=== PATIENT | male | born 1990 | race Caucasian/White ===

== ENCOUNTER 2021-10-26 11:47 | Emergency (ER) | payer BC, SELFPAY ==
[2021-10-26] VITALS (15 sets, daily range): BP systolic 97–131; BP diastolic 56–81; PULSE 48–77; RESP 13–28; TEMP 35.6; O2SAT 96–100
--- NOTE | ~2021-10-26 | CT_ITS ---
EXAMINATION: CT abdomen pelvis wo con DATE: 10/26/2021 13:30 INDICATION: R flank pain TECHNIQUE: Computed tomography (CT) of the abdomen and pelvis was performed without intravenous contr ast. Automated exposure control and iterative reconstruction technique were employed. The dose-length product was 411.12 mGy-cm. COMPARISON: None FINDINGS: Lower thorax: Unremarkable Liver: Enlarged. Biliary/Gallbladder: Gallbladder is normal. No bile duct dilation. Pancreas: No mass or duct dilation. Spleen: Normal. Adrenals:No mass. Kidneys: Multiple bilateral punctate renal calcifications. Minimal right hydronephrosis. GI tract: No small or large bowel dilation. Appendix not visualized. 3.1 cm duodenal diverticulum. Mesentery/Peritoneum: No ascites, mass, or free air. Retroperitoneum: No mass. Pelvis: Prominent seminal vesicles. The bladder is incompletely distended, with wall thickening. 1-2 mm right UVJ stone. Soft Tissues: Soft tissues and body wall unremarkable. Bones: No acute osseous finding. IMPRESSION: 1-2 mm right UVJ stone causing mild right obstructive uropathy. Prominence seminal vesicles, correlat e with symptoms of infection. Reviewed, dictated and finalized at location K. IMPRESSION: 1-2 mm right UVJ stone causing mild right obstructive uropathy. Prominence semi nal vesicles, correlate with symptoms of infection.
--- NOTE | ~2021-10-26 | XR_ITS ---
EXAM: XR abdomen/kub 1V DATE: 10/26/2021 13:42 HISTORY: kidney stone . COMPARISON: CT abdomen and pelvis, same date. FINDINGS: Clear lung bases. Normal bowel gas pattern. No organomegaly. No abnormal abdominal calcifi cation. Regional bones and soft tissues normal for age. IMPRESSION: Normal abdominal radiograph findings. Known right UVJ stone is not radiographically visib le. Reviewed, dictated and finalized at location K. IMPRESSION: Normal abdominal radiograph findings. Known right UVJ stone is not radiographically visible.
--- NOTE | 2021-10-26 12:12 | ED.ABDPAIN ---
HPI - Abdominal Pain General Chief Complaint: Abdominal Pain Stated Complaint: ABD/BACK PAIN, N/V Time Seen by Provider: 10/26/21 12:07 Source: RN notes reviewed History of Present Illness HPI narrative: Patient presents emergency room from home for right-sided flank and abdominal pain. Patient states pain began suddenly approximately 10 AM this morning. The pain is located in right flank and radiates around to the right side of the abdomen described as sharp and stabbing. States has been associate with nausea and vomiting. States he not taking thing for the symptoms at home he denies any fever chills chest pain shortness of breath or any other symptoms. States he is an insulin-dependent diabetic and has been taking his insulin as prescribed states his blood sugars have been running within normal range Related Data Home Medications Medication Instructions Recorded Confirmed insulin lispro 100 unit/mL ml 10/26/21 subcutaneous solution (Humalog U-100 Insulin) Allergies Allergy/AdvReac Type Severity Reaction Status Date / Time No Known Allergies Allergy Verified 10/26/21 12:16 Review of Systems Review of Systems: Gen.: Denies fevers or chills ENT: Denies congestion Respiratory: Denies shortness of breath or cough CV: Denies chest pain or palpitations GI: HPI denies burning, urgency, frequency or hematuria Musculoskeletal: Denies back pain or muscle pain Neuro: Denies numbness, tingling, weakness or focal weakness Skin: Denies rash Except as documented, all other systems reviewed and negative [facility] Past Medical History Medical History (Updated 10/26/21 @ 14:59 by Remy Blackburn DO) Insulin dependent diabetes mellitus Family History Family History (Updated 04/11/18 @ 09:11 by DOCTOR UNKNOWN) Other Diabetes mellitus Malignant neoplasm of prostate Social History Social History Smoking status: Never smoker Alcohol intake: current Exam Narrative: APPEARANCE: No acute distress, nontoxic, resting in bed EYES: EOMI HEENT: Normocephalic, atraumatic, OMM RESPIRATORY: No respiratory distress Clear to auscultation bilaterally with no rhonchi wheezing or rales. CARDIOVASCULAR: Regular rate and rhythm without murmurs rubs or gallops. ABDOMINAL: Soft, nondistended tender palpation right lower quadrant no tenderness right upper quadrant, left upper quadrant left lower quadrant no rebound or guarding, right flank tenderness MUSCULOSKELETAl: Moves all extremities. No clubbing, cyanosis or edema. NEURO: Awake and alert. Following commands, speech normal, no focal deficits SKIN:: Warm, dry. No rashes lesions or abrasions PSYCHIATRIC: Normal affect/mood, Course Course Emergency Course: Patient states he is feeling much better at this time Discussed with patient results of workup and diagnosis. Discussed need for follow-up with primary care, proper use of medication, and reasons to return to the emergency department. Patient understands and agrees to current treatment plan Vital Signs Vital signs: Vital Signs Temperature 96.1 F L 10/26/21 12:02 Pulse Rate 48 L 10/26/21 12:02 Respiratory Rate 20 10/26/21 12:02 Blood Pressure 97/56 L 10/26/21 12:02 Pulse Oximetry 100 10/26/21 12:02 Temperature 96.1 F L 10/26/21 12:02 Pulse Rate 71 10/26/21 14:15 Respiratory Rate 18 10/26/21 14:15 Blood Pressure 113/68 10/26/21 14:01 Pulse Oximetry 97 10/26/21 14:15 Oxygen Delivery Room Air 10/26/21 12:13 MDM - Abdominal Pain Lab Data Result diagrams: 10/26/21 12:16 10/26/21 12:16 Labs: Lab Results 10/26/21 10/26/21 10/26/21 Range/Units 12:12 12:16 12:16 WBC 5.5 (4.5-10.0) K/mm3 RBC 6.05 (4.6-6.20) M/mm3 Hgb 17.3 (14.0-18.0) g/dL Hct 50.0 (42.0-52.0) % MCV 82.6 (80-100) fl MCH 28.6 (26-34) pg MCHC 34.6 (32-36) g/dl RDW 12.3 (11.5-
[2021-10-26 12:21] LABS: Basophils Percent Auto 0.7 % (0.2-1.2); Eosinophils Absolute Auto 0.1 K/mm3 (0-0.3); Eosinophils Percent Auto 1.1 % (0-4.4); Hemoglobin 17.3 g/dL (14.0-18.0); Immature Granulocyte Absolute 0.02 K/mm3 (0.00-0.031); Immature Granulocyte Percent A 0.4 % (0-0.5); Lymphocytes Absolute Auto 1.62 K/mm3 (0.9-3.2); Lymphocytes Percent Auto 29.4 % (18.3-44.2); Mean Corpuscular HGB Conc 34.6 g/dl (32-36); Mean Corpuscular Hemoglobin 28.6 pg (26-34); Mean Corpuscular Volume 82.6 fl (80-100); Mean Platelet Volume 9.1 fl (7.4-10.4); Monocytes Absolute Auto 0.5 K/mm3 (0.1-0.6); Monocytes Percent Auto 9.3 % (2.6-8.5); Neutrophils Absolute Auto 3.3 K/mm3 (1.3-6.7); Neutrophils Percent Auto 59.1 % (45.5-73.1); Platelet Count Result 235 k/mm3 (150-375); Red Blood Count 6.05 M/mm3 (4.6-6.20); Red Cell Distribution Width 12.3 % (11.5-14.5); White Blood Count 5.5 K/mm3 (4.5-10.0)
[2021-10-26] MEDS: ONDANSETRON INJ 4 MG/2 ML VIAL IV PUSH (12:21)
[2021-10-26] MEDS: SODIUM CHLORIDE 0.9% IV 1,000 ML 999 ML IV CONT (12:21)
[2021-10-26 12:32] LABS: Alanine Aminotransferase 24 U/L (6-50); Albumin Level 4.9 g/dL (3.5-5.1); Alkaline Phosphatase 95 U/L (38-126); Anion Gap 12 mmol/L (8-16); Aspartate Amino Transferase 23 U/L (17-59); Bilirubin,Total 0.9 mg/dL (0.2-1.3); Blood Urea Nitrogen 16 mg/dL (9-20); Calcium 9.1 mg/dL (8.4-10.2); Carbon Dioxide 23 mmol/L (22-30); Chloride 104 mmol/L (98-107); Estimated CRCL calculation 110 ml/min; Estimated Glomerular Filt Rate > 60; Glucose 232 mg/dL (65-110); Potassium 4.1 mmol/L (3.4-5.0); Sodium 139 mmol/L (137-145)
--- NOTE | 2021-10-26 13:24 | PC.NURSE ---
Pt in CT scan
[2021-10-26] MEDS: MORPHINE SULFATE (*CRX) 4 MG/ML INJ IV PUSH (13:31)
[2021-10-26] MEDS: TAMSULOSIN HCL 0.4 MG CAPSULE PO (14:09)
--- NOTE | 2021-10-26 14:13 | PC.NURSE ---
Pt unable to supply urine sample after multiple attempts, pt declines straight catheter at this time and states he will drink water and try again.
[2021-10-26 14:37] LABS: Glucose Point of Care 226 mg/dl (65-105)
[2021-10-26 14:47] LABS: Appearance Urine Clear (Clear); Bilirubin Urine Negative (Negative); Blood Urine 2+ (Negative); Color Urine Yellow (Yellow); Glucose Urine UA 3+ mg/dL (Negative); Ketones Urine 1+ mg/dL (Negative); Leukocyte Esterase Ur Negative LEU/UL (Negative); Nitrate Urine Negative (Negative); Protein Urine Trace mg/dL (Negative); Specific Grav Ur 1.025 (1.001-1.035); Urobilinogen Urine 0.2 mg/dL (<2.0)
[2021-10-26 14:54] LABS: Bacteria Urine Trace /hpf; Mucus Urine Rare /lpf; RBC Urine 21-50 /hpf (0-2); WBC Urine 0-3 /hpf
[2021-10-26 14:55] LABS: Add Urine Microscopic? YES
== END 2021-10-26 15:13 | disposition home or self-care (01) ==
PROVIDERS: Emergency Provider Emergency Medicine; PCP Internal Medicine Endocrinology, Diabetes & Metabolism
DX: N13.9 Obstructive and reflux uropathy, unspecified (principal); N20.1 Calculus of ureter; E11.9 Type 2 diabetes mellitus without complications; Z79.4 Long term (current) use of insulin
CPT/HCPCS: 36415; 74018; 74176; 80053; 81001; 82948; 85025; 96361; 96374; 96375; 99284; A9270; J0131; J2270; J2405; J7030

== ENCOUNTER 2024-06-15 07:43 | Emergency (ER) | payer BC, SELFPAY ==
--- NOTE | ~2024-06-15 | CT_ITS ---
CLINICAL INDICATION: Right flank pain COMPARISON: 10/26/2021. TECHNIQUE: Multiple contiguous axial images of the abdomen and pelvis were performed without the admi nistration of intravenous contrast The dose-length product (DLP) was 380.32 mGy-cm. Automated exposure control and iterative reconstruction technique were employed. FINDINGS/OBSERVATIONS: Visualized lower thorax: The bilateral lung bases are clear. The heart is of normal size, without pericardial effusion. Small hiatal hernia is present. Liver: The liver demonstrates homogeneous attenuation and is not enlarged measuring 18 cm in longitudinal di mension. Gallbladder and biliary system: The gallbladder is only minimally distended, and otherwise unremarkable. Pancreas: Limited evaluation of the pancreas secondary to the lack of intravenous contrast. Spleen: The spleen demonstrates homogeneous attenuation and is not enlarged measuring 4 cm in longitudinal di mension. Kidneys: 4 mm nonobstructing calculus within the interpolar region of the left kidney. 2 mm nonobstructing stone within the lower pole of the left kidney. Innumerable 2 and 3 mm nonobstructing stones throughout the entirety of the right kidney. No right-si ded hydronephrosis. The remainder of the bilateral kidneys are otherwise unremarkable, without hydronephrosis or obstruct ing renal calculi. Adrenal glands: Unremarkable. Gastrointestinal tract: Fecal stasis within the colon. Appendix: The air-filled appendix is of normal caliber (axial series, images 117 through 140) Vasculature: Unremarkable. Lymph nodes: No pathologically enlarged or morphologically suspicious lymph nodes within the retroperitoneum or at the root of the mesentery. Pelvic structures: The bladder is only minimally distended, and otherwise unremarkable. The prostate gland is not enlarged. Body wall and musculoskeletal: Small fat-containing umbilical hernia. No significant degenerative disease within the lower thoracic or lumbosacral spine. IMPRESSION: Multiple nonobstructing subcentimeter calculi within the bilateral kidneys, right greater than left. No obstructive uropathy. Normal appendix Reviewed, dictated and finalized at location [] P YARD WORKER IMPRESSION: Multiple nonobstructing subcentimeter calculi within the bilateral kidneys, rig ht greater than left. No obstructive uropathy. Normal appendix
[2024-06-15 07:59] VITALS: BP 120/74; PULSE 61; RESP 17; TEMP 36.4; O2SAT 100
[2024-06-15 08:15] LABS: Basophils Percent Auto 1.1 % (0.2-1.2); Eosinophils Absolute Auto 0.2 K/mm3 (0-0.3); Eosinophils Percent Auto 4.1 % (0-4.4); Hematocrit 47.6 % (42.0-52.0); Hemoglobin 16.7 g/dL (14.0-18.0); Immature Granulocyte Absolute 0.01 K/mm3 (0.00-0.031); Immature Granulocyte Percent A 0.3 % (0-0.5); Lymphocytes Absolute Auto 1.51 K/mm3 (0.9-3.2); Lymphocytes Percent Auto 41.7 % (18.3-44.2); Mean Corpuscular HGB Conc 35.1 g/dl (32-36); Mean Corpuscular Hemoglobin 28.4 pg (26-34); Mean Corpuscular Volume 80.8 fl (80-100); Mean Platelet Volume 8.7 fl (7.4-10.4); Monocytes Absolute Auto 0.5 K/mm3 (0.1-0.6); Monocytes Percent Auto 12.4 % (2.6-8.5); Neutrophils Absolute Auto 1.5 K/mm3 (1.3-6.7); Neutrophils Percent Auto 40.4 % (45.5-73.1); Platelet Count Result 243 k/mm3 (150-375); Red Blood Count 5.89 M/mm3 (4.6-6.20); Red Cell Distribution Width 12.2 % (11.5-14.5); White Blood Count 3.6 K/mm3 (4.5-10.0)
[2024-06-15 08:25] LABS: Alanine Aminotransferase 27 U/L (6-50); Albumin Level 4.5 g/dL (3.5-5.1); Alkaline Phosphatase 68 U/L (38-126); Anion Gap 12 mmol/L (4-12); Aspartate Amino Transferase 25 U/L (17-59); Bilirubin,Total 0.8 mg/dL (0.2-1.3); Blood Urea Nitrogen 9 mg/dL (9-20); Calcium 9.5 mg/dL (8.4-10.2); Carbon Dioxide 25 mmol/L (22-30); Chloride 103 mmol/L (98-107); Estimated CRCL calculation 116 ml/min; Estimated Glomerular Filt Rate > 60; Glucose 139 mg/dL (65-110); Potassium 3.5 mmol/L (3.4-5.0); Sodium 140 mmol/L (137-145)
[2024-06-15 08:26] LABS: Add Urine Microscopic? YES; Appearance Urine Clear (Clear); Bacteria Urine None Seen /hpf; Bilirubin Urine Negative (Negative); Blood Urine Non-Hemolyzed Trace (Negative); Color Urine Dark Yellow (Yellow); Glucose Urine UA 2+ mg/dL (Negative); Ketones Urine Trace mg/dL (Negative); Leukocyte Esterase Ur Trace LEU/UL (Negative); Mucus Urine Present /lpf; Need Manual Microscopic Reviewed; Nitrate Urine Negative (Negative); Protein Urine Trace mg/dL (Negative); Squamous Epithelial Cell Urine None Seen /hpf (Few); pH Urine 5.5 (5.0-9.0)
--- NOTE | 2024-06-15 08:26 | ED.GENADULT ---
HPI - General Adult General Chief complaint: Urogenital-Male Stated complaint: possible kidney stone, has hx Time Seen by Provider: 06/15/24 07:50 History of Present Illness HPI narrative: 33-year-old male history of kidney stones presented to the emergency department for evaluation for right flank pain that radiates to his right lower quadrant. Patient states he is feeling fine yesterday and when he woke up he had sudden onset of right flank pain. Patient does have associated nausea and vomiting. Patient does report a previous history of kidney stones and patient did not need a procedure to pass the stone. Related Data Home Medications ?Medication ?Instructions ?Recorded ?Confirmed ?Last Taken ?Type insulin lispro 100 unit/mL ml 10/26/21 10/26/21 History subcutaneous solution (Humalog U-100 Insulin) Allergies Allergy/AdvReac Type Severity Reaction Status Date / Time No Known Allergies Allergy Verified 06/15/24 08:01 Review of Systems Review of Systems: All systems reviewed & are unremarkable except as noted in HPI and below PMFSH Past Medical History Medical History (Updated 06/15/24 @ 10:02 by Armen Chavarria MD) Insulin dependent diabetes mellitus Family History Family History (Updated 04/11/18 @ 09:11 by DOCTOR UNKNOWN) Other Diabetes mellitus Malignant neoplasm of prostate Social History Social History Smoking status: Never smoker Alcohol intake: current Exam Narrative: APPEARANCE: Uncomfortable appearing HEAD: normocephalic, atraumatic. EYES: PERRLA/EOMI, conjunctivae clear. NOSE: Normal no drainage EARS:TMS clear with good light reflex. THROAT: Pharynx clear, no exudate. NECK: Supple. No adenopathy, no masses. RESPIRATORY: Airway patent, respirations nonlabored. Clear to auscultation bilaterally, no rales, rhonchi, wheezing. CARDIOVASCULAR: Regular rate and rhythm without murmurs rubs or gallops. ABDOMINAL: Soft, nontender, nondistended, normal bowel sounds MUSCULOSKELETAL: Moves all extremities. Strength/ROM intact, No edema, No calf tenderness. NEURO: Alert. Cranial nerves II through XII intact. Grossly intact SKIN: Warm, dry. Normal Color Course Vital Signs Vital signs: Vital Signs Temperature 97.5 F L 06/15/24 07:59 Pulse Rate 61 06/15/24 07:59 Respiratory Rate 17 06/15/24 07:59 Blood Pressure 120/74 06/15/24 07:59 Pulse Oximetry 100 06/15/24 07:59 Oxygen Delivery Room Air 06/15/24 07:59 Temperature 97.9 F 06/15/24 10:00 Pulse Rate 74 06/15/24 10:00 Respiratory Rate 14 06/15/24 10:00 Blood Pressure 116/68 06/15/24 10:00 Pulse Oximetry 100 06/15/24 10:00 Oxygen Delivery Room Air 06/15/24 07:59 Medical Decision Making MDM Narrative Medical decision making narrative: 33-year-old male with history of kidney stones presents to the emergency department for evaluation for right-sided flank pain. Patient is afebrile with no leukocytosis and hemoglobin of 16.7. INR is 1.3. Patient had no significant abnormalities on his CMP. UA did show hematuria with no underlying evidence of infection. CT showed Multiple nonobstructing subcentimeter calculi within the bilateral kidneys, right greater than left, No obstructive uropathy, Normal appendix. On re-evaluation patient reports he does feel improved. Patient was encouraged to decrease his soda intake and increase his water intake. Patient will also be provided follow-up with Urology. All questions concerns were addressed patient was well-appearing at time of discharge. Differential Diagnosis Differential Diagnosis: Ureteral calculi, kidney stones, UTI Vital Signs Vital Signs: Vital Signs Temperature 97.5 F L 06/15/24 07:59 Pulse Rate 61 06/15/24 07:59 Respiratory Rate 17 06/15/24 07:59 Blood Pressure 120/74 06/15/24 07:59 Pulse Oximetry 100 06/15/24 07:59 Oxygen Delivery Room Air 06/15/24 07:59 Temperature 97.9 F 06/15/24 10:00 Pulse Rate 74 06/15/24 10:00 Respiratory Rate 14 06/15/24 10:00 Blood Pressure 116/68 06/15/24 10:00 Pulse Oximetry 100 06/15/24 10:00 Oxygen Delivery Room Air 06/15/24 07:59 Lab Data Lab results reviewed: Yes I reviewed the patient's lab results. 06/15/24 08:08 06/15/24 08:08 Labs: Lab Results 06/15/24 Range/Units 08:08 WBC 3.6 L (4.5-10.0) K/mm3 RBC 5.89 (4.6-6.20) M/mm3 Hgb 16.7 (14.0-18.0) g/dL Hct 47.6 (42.0-52.0) % MCV 80.8 (80-100) fl MCH 28.4 (26-34) pg MCHC 35.1 (32-36) g/dl RDW 12.2 (11.5-14.5) % Plt Count 243 (150-375) k/mm3 MPV 8.7 (7.4-10.4) fl Immature Gran % (Auto) 0.3 (0-0.5) % Neut % (Auto) 40.4 L (45.5-73.1) % Lymph % (Auto) 41.7 (18.3-44.2) % [place] % (Auto) 12.4 H (2.6-8.5) % Eos % (Auto) 4.1 (0-4.4) % Baso % (Auto) 1.1 (0.2-1.2) % Lymph # (Auto) 1.51 (0.9-3.2) K/mm3 [place] # (Auto) 0.5 (0.1-0.6) K/mm3 Eos # (Auto) 0.2 (0-0.3) K/mm3 Baso # (Auto) 0.0 (0.0-0.1) K/mm3 Abs Immat Gran (auto) 0.01 (0.00-0.031) K/mm3 Absolute Neuts (auto) 1.5 (1.3-6.7) K/mm3 Absolute Nucleated RBC 0.000 (0.0-0.012) K/mm3 Nucleated RBC % 0.0 (0.0-0.2) % PT 16.5 H (11.1-14.7) Seconds INR 1.3 APTT 20.8 L (22.3-36.8) Seconds Sodium 140 (137-145) mmol/L Potassium 3.5 (3.4-5.0) mmol/L Chloride 103 (98-107) mmol/L Carbon Dioxide 25 (22-30) mmol/L Anion Gap 12 (4-12) mmol/L BUN 9 D (9-20) mg/dL Creatinine 0.77 (0.7-1.3) mg/dL Estim Creat Clear Calc 116 ml/min Estimated GFR > 60 (59 - ) Glucose 139 H (65-110) mg/dL Calcium 9.5 (8.4-10.2) mg/dL Total Bilirubin 0.8 (0.2-1.3) mg/dL AST 25 (17-59) U/L ALT 27 (6-50) U/L Alkaline Phosphatase 68 (38-126) U/L Total Protein 7.0 (6.3-8.2) g/dL Albumin 4.5 (3.5-5.1) g/dL Urine Color Dark yellow (Yellow) Urine Appearance Clear (Clear) Urine pH 5.5 (5.0-9.0) Ur Specific [place] 1.020 (1.001-1.035) Urine Protein Trace (Negative) mg/dL Urine Glucose (UA) 2+ H (Negative) mg/dL Urine Ketones Trace H (Negative) mg/dL Ur Blood (Man) Non-hemolyzed trace (Negative) Urine Nitrate Negative (Negative) Urine Bilirubin Negative (Negative) Urine Urobilinogen 1.0 (<2.0) mg/dL Add Ur Microanalysis Reviewed Leukocyte Esterase Rfl Trace H (Negative) SHANNAN/UL Urine RBC 6-10 H (0-2) /hpf Urine WBC 6-10 H (0-3) /hpf Ur Squamous Epith Cells None seen (Few) /hpf Urine Bacteria None seen /hpf Urine Casts 3-5 Urine Mucus Present /lpf Imaging Data Radiologist's impression: Impressions Abdomen/Pelvis CT 06/15/24 09:34 IMPRESSION: Multiple nonobstructing subcentimeter calculi within the bilateral kidneys, right greater than left. No obstructive uropathy. Normal appendix Discharge Plan Discharge Clinical Impression: Bilateral kidney stones, Acute right flank pain, Hematuria Patient Disposition: Home, Self-Care Condition: Stable Instructions: Antibiotic Form, Kidney Stones (ED), Flank Pain (ED) Additional Instructions: Increase your water intake and decrease your soda intake. Have close follow-up with Urology. Tylenol and ibuprofen for pain control. Zofran as needed for nausea control. If you have any worsening symptoms then please call or return to the emergency department. Patient Language: Faroese Prescriptions: New ondansetron 4 mg tablet,disintegrating 4 mg PO Q8H PRN (Reason: nausea and vomiting) Qty: 14 0RF No Action insulin lispro [Humalog U-100 Insulin] 100 unit/mL solution hydrocodone-acetaminophen 5-325 mg tablet 1 tablet PO Q4H PRN (Reason: pain) Qty: 10 0RF ibuprofen [IBU] 600 mg tablet 600 mg PO Q6H PRN (Reason: pain) Qty: 20 0RF ondansetron 4 mg tablet,disintegrating 4 mg PO Q6H PRN (Reason: nausea and vomiting) Qty: 10 0RF tamsulosin [Flomax] 0.4 mg capsule 0.4 mg PO DAILY Qty: 5 0RF Follow-up/Referrals: Willie,Cruzito Montoya MD [Primary Care Provider] - Mikhail Hollis MD [Physician] -
[2024-06-15 08:28] LABS: INR 1.3; Prothrombin Time 16.5 Seconds (11.1-14.7)
[2024-06-15 08:29] LABS: Partial Thromboplastin Time 20.8 Seconds (22.3-36.8)
[2024-06-15] MEDS: ONDANSETRON INJ 4 MG/2 ML VIAL IV PUSH (08:29)
[2024-06-15 09:00] VITALS: BP 118/74; PULSE 78; RESP 16; TEMP 36.6; O2SAT 100
--- OUTSIDE RECORDS SUMMARY | 2024-06-15 09:05 | XMS_ITS | Continuity of Care Document ---
Author Organization [facility] Address [address] [place] [address] Phone Care Team Providers Care Skiver Welt End Name Role Phone Villa OD, John Paul Unavailable Unavailable Advance Directives Directive Yes / No Effective Date File Name No Information Encounters Encounter Description Practice Location Reason(s) For Visit Diagnoses Date Provider Providers Copied on Encounter [facility], [address], [place], [place], [id number], [place] tel:[phone] [facility] No Information Dec-0 6-200 1 Villa OD John Paul. [address] , [address], [place], [address], [place]. tel:[phone] Family History Family Member Type Diagnosis Age At Onset No Information Payers Payer name Insurance type Covered democrat ID Authoriza tion(s) No Information Social History Type Description Quantity Date Captured Comments Sex Male Smoking Status No Information Chief Complaint And Reason For Visit No Information Reason For Referral Reason For Referral No Information History Of Present Illness Encounter Date Complaint History Of Prese nt Illness No Information Functional Status Date Functional Assessmen t No Information Instructions Date Instruction Additional Infor mation No Information Assessments Type Assessment Date No Information Patient Care Teams Name Effective Dates (start - stop) Status Members No Information
[2024-06-15 09:45] VITALS: BP 116/77; PULSE 80; RESP 16; TEMP 36.6; O2SAT 100
[2024-06-15 10:00] VITALS: BP 116/68; PULSE 74; RESP 14; TEMP 36.6; O2SAT 100
== END 2024-06-15 10:23 | disposition home or self-care (01) ==
PROVIDERS: Emergency Provider Emergency Medicine; PCP Internal Medicine Endocrinology, Diabetes & Metabolism
DX: N20.0 Calculus of kidney (principal); R31.9 Hematuria, unspecified; E11.9 Type 2 diabetes mellitus without complications; Z79.4 Long term (current) use of insulin; Z79.899 Other long term (current) drug therapy
CPT/HCPCS: 36415; 74176; 80053; 81001; 85025; 85610; 85730; 87086; 96374; 96375; 99284; J2405

== ENCOUNTER 2024-06-27 12:35 | Outpatient (CLI) | payer BC, SELFPAY ==
--- NOTE | ~2024-06-27 | XR_ITS ---
Exam: Abdomen 1V HISTORY: Hx of kidney stones COMPARISON: CT examination of the abdomen and pelvis dated 06/15/2024 TECHNIQUE: Supine images of the abdomen FINDINGS: Bowel gas pattern is non-obstructive. There is no free air or deep sulci. Fecal stasis projects over the expected locations of the bilateral kidneys, markedly limiting evaluat ion. Lung bases are unremarkable. Bones and soft tissues are unremarkable. IMPRESSION: Nonspecific, nonobstructive bowel gas pattern. Significant fecal stasis precludes adequate evaluation of the presence or absence of bilateral renal calculi. Reviewed, dictated and finalized at location B. [place] IMPRESSION: Nonspecific, nonobstructive bowel gas pattern. Significant fecal stasis precludes adequate evaluation of the presence or absen ce of bilateral renal calculi.
--- NOTE | ~2024-06-27 | US_ITS ---
EXAMINATION: US retroperitoneal comp DATE: 06/27/2024 13:05 INDICATION: Nephrolithiasis TECHNIQUE: Multiple ultrasound grayscale images of the kidneys were obtained. COMPARISON: CT dated 06/15/2024 FINDINGS: The right kidney measures 10.6 x 4.8 x 4.0 cm. The left kidney measures 12.3 x 4.3 x 6.4 cm. The kidn eys demonstrate normal echogenicity. There are a few echogenic foci in both kidneys with posterior tw inkle artifact consistent with nonobstructing nephrolithiasis. There is no hydronephrosis in either k idney. The bladder is normal with ureteral jets visualized on color Doppler. IMPRESSION: 1. Bilateral nonobstructing nephrolithiasis. Otherwise normal kidneys with no hydronephrosis. Reviewed, dictated and finalized at location A. MACHINE TENDER
== END 2024-06-27 12:36 | disposition home or self-care (01) ==
PROVIDERS: PCP Nurse Practitioner Family; Visit Provider Nurse Practitioner Family
DX: N20.0 Calculus of kidney (principal); K56.41 Fecal impaction; Z87.442 Personal history of urinary calculi
CPT/HCPCS: 74018; 76770

== ENCOUNTER 2024-07-11 13:17 | Emergency (ER) | payer BC, SELFPAY ==
--- NOTE | ~2024-07-11 | CT_ITS ---
EXAMINATION: CT abdomen pelvis wo con DATE: 07/11/2024 15:05 INDICATION: Flank pain TECHNIQUE: Computed tomography (CT) of the abdomen and pelvis was performed without intravenous contr ast. Automated exposure control and iterative reconstruction technique were employed. The dose-length product was 368.49 mGy-cm. COMPARISON: 06/15/2024, 10/26/2021. FINDINGS: Lower thorax: Unremarkable Liver: Mildly enlarged. Biliary/Gallbladder: Gallbladder is normal. No bile duct dilation. Pancreas: No mass or duct dilation. Spleen: Normal. Adrenals:No mass. Kidneys: Multiple nonobstructing left calculi measuring up to 4 mm. Multiple punctate nonobstructing calcifications in the right kidney. Mild right pelviectasis and caliectasis. No left hydronephrosis. No suspicious mass. GI tract: No small or large bowel dilation. The appendix is dilated to 10 mm, without inflammatory ch jillian, which is a chronic finding and likely normal for this patient. Mesentery/Peritoneum: No ascites, mass, or free air. Retroperitoneum: No mass. Pelvis: Mild ureterectasis on the right. 3 mm calcification at the right UVJ. Pelvic organs are other allen within normal limits. Soft Tissues: Soft tissues and body wall unremarkable. Bones: No acute osseous finding. Chronic moderate anterior wedge deformity at L1. IMPRESSION: 3 mm right UVJ stone causing mild obstructive uropathy. Reviewed, dictated and finalized at location [facility]
[2024-07-11 13:26] VITALS: BP 147/83; PULSE 112; RESP 22; TEMP 36.4; O2SAT 100
[2024-07-11 14:48] LABS: Basophils Percent Auto 0.4 % (0.2-1.2); Eosinophils Percent Auto 0.1 % (0-4.4); Hematocrit 49.8 % (42.0-52.0); Hemoglobin 17.4 g/dL (14.0-18.0); Immature Granulocyte Absolute 0.03 K/mm3 (0.00-0.031); Immature Granulocyte Percent A 0.3 % (0-0.5); Lymphocytes Absolute Auto 0.76 K/mm3 (0.9-3.2); Lymphocytes Percent Auto 7.5 % (18.3-44.2); Mean Corpuscular HGB Conc 34.9 g/dl (32-36); Mean Corpuscular Hemoglobin 28.1 pg (26-34); Mean Corpuscular Volume 80.3 fl (80-100); Monocytes Absolute Auto 0.8 K/mm3 (0.1-0.6); Monocytes Percent Auto 7.4 % (2.6-8.5); Neutrophils Absolute Auto 8.5 K/mm3 (1.3-6.7); Neutrophils Percent Auto 84.3 % (45.5-73.1); Platelet Count Result 243 k/mm3 (150-375); Red Cell Distribution Width 12.2 % (11.5-14.5); White Blood Count 10.1 K/mm3 (4.5-10.0)
[2024-07-11] MEDS: ONDANSETRON INJ 4 MG/2 ML VIAL IV PUSH (14:48)
[2024-07-11] MEDS: SODIUM CHLORIDE 0.9% IV 1,000 ML 999 ML IV CONT (14:48)
[2024-07-11] MEDS: MORPHINE SULFATE (*CRX) 4 MG/ML INJ IV PUSH (14:49)
[2024-07-11 14:58] LABS: Alanine Aminotransferase 45 U/L (6-50); Albumin Level 4.9 g/dL (3.5-5.1); Alkaline Phosphatase 79 U/L (38-126); Anion Gap 13 mmol/L (4-12); Aspartate Amino Transferase 36 U/L (17-59); Bilirubin,Total 1.2 mg/dL (0.2-1.3); Blood Urea Nitrogen 18 mg/dL (9-20); Calcium 9.8 mg/dL (8.4-10.2); Carbon Dioxide 23 mmol/L (22-30); Chloride 102 mmol/L (98-107); Estimated CRCL calculation 101 ml/min; Estimated Glomerular Filt Rate > 60; Glucose 118 mg/dL (65-110); Potassium 4.5 mmol/L (3.4-5.0); Sodium 138 mmol/L (137-145)
--- NOTE | 2024-07-11 15:38 | ED_ITS ---
HPI - General Adult General Chief complaint: Back Pain/Injury Stated complaint: kidney stone, we are sure of it Time Seen by Provider: 07/11/24 14:37 History of Present Illness HPI narrative: Patient 33-year-old gentleman presents emergency department with chief complaint of flank pain. Patient reports he has prior history of kidney stones reports he has to see Urology in the near future Related Data Home Medications ?Medication ?Instructions ?Recorded ?Confirmed ?Last Taken ?Type insulin lispro 100 unit/mL ml 10/26/21 10/26/21 History subcutaneous solution (Humalog U-100 Insulin) Allergies Allergy/AdvReac Type Severity Reaction Status Date / Time No Known Allergies Allergy Verified 07/11/24 13:19 Review of Systems 2 Review of Systems: A 10 system review of systems was completed on the patient and is negative except for what is stated in the HPI. Nursing and ancillary documentation was reviewed. [facility] Past Medical History Medical History Insulin dependent diabetes mellitus Family History Family History Other Diabetes mellitus Malignant neoplasm of prostate Social History Social History Smoking status: Never smoker Alcohol intake: current Exam 2 Narrative: GENERAL: Well-appearing, well-nourished, and in moderate acute pain distress. HEAD: Normocephalic, atraumatic. EYES: PERRLA and EOMI. ENT: Nares clear, no rhinorrhea or epistaxis. Mucous membranes moist. NECK: Supple. CHEST: Clear to auscultation. No respiratory distress. HEART: Regular rate and rhythm. No murmur heard. Normal peripheral pulses. ABDOMEN: Soft, nontender, nondistended, normal active bowel sounds. EXTREMITIES: Normal range of motion. No edema. SKIN: Warm, dry, no rash. NEURO: No focal deficits. Alert and oriented x3. PSYCH: Normal mood and affect. Course Vital Signs Vital signs: Vital Signs Temperature 36.4 C L 07/11/24 13:26 Pulse Rate 112 H 07/11/24 13:26 Respiratory Rate 22 H 07/11/24 13:26 Blood Pressure 147/83 H 07/11/24 13:26 Pulse Oximetry 100 02/25/25 13:26 Temperature 36.4 C L 07/11/24 13:26 Pulse Rate 55 L 07/11/24 15:50 Respiratory Rate 18 07/11/24 15:50 Blood Pressure 138/74 07/11/24 15:50 Pulse Oximetry 100 07/11/24 15:50 Medical Decision Making MDM Narrative Medical decision making narrative: Differential diagnosis includes ureterolithiasis, UTI, pyelonephritis Laboratory studies were obtained on the patient showed a normal CBC CMP was within normal limits CT scan of the abdomen pelvis shows a left 3 mm UVJ stone Vital Signs Vital Signs: Vital Signs Temperature 36.4 C L 07/11/24 13:26 Pulse Rate 112 H 07/11/24 13:26 Respiratory Rate 22 H 07/11/24 13:26 Blood Pressure 147/83 H 07/11/24 13:26 Pulse Oximetry 100 07/11/24 13:26 Temperature 36.4 C L 07/11/24 13:26 Pulse Rate 55 L 07/11/24 15:50 Respiratory Rate 18 07/11/24 15:50 Blood Pressure 138/74 07/11/24 15:50 Pulse Oximetry 100 07/11/24 15:50 Lab Data 07/11/24 14:42 07/11/24 14:42 Labs: Lab Results 07/11/24 07/11/24 Range/Units 14:42 17:07 WBC 10.1 H (4.5-10.0) K/mm3 RBC 6.20 (4.6-6.20) M/mm3 Hgb 17.4 (14.0-18.0) g/dL Hct 49.8 (42.0-52.0) % MCV 80.3 (80-100) fl MCH 28.1 (26-34) pg MCHC 34.9 (32-36) g/dl RDW 12.2 (11.5-14.5) % Plt Count 243 (150-375) k/mm3 MPV 9.0 (7.4-10.4) fl Immature Gran % (Auto) 0.3 (0-0.5) % Neut % (Auto) 84.3 H (45.5-73.1) % Lymph % (Auto) 7.5 L (18.3-44.2) % [place] % (Auto) 7.4 (2.6-8.5) % Eos % (Auto) 0.1 (0-4.4) % Baso % (Auto) 0.4 (0.2-1.2) % Lymph # (Auto) 0.76 L (0.9-3.2) K/mm3 [place] # (Auto) 0.8 H (0.1-0.6) K/mm3 Eos # (Auto) 0.0 (0-0.3) K/mm3 Baso # (Auto) 0.0 (0.0-0.1) K/mm3 Abs Immat Gran (auto) 0.03 (0.00-0.031) K/mm3 Absolute Neuts (auto) 8.5 H (1.3-6.7) K/mm3 Absolute Nucleated RBC 0.000 (0.0-0.012) K/mm3 Nucleated RBC % 0.0 (0.0-0.2) % Sodium 138 (137-145) mmol/L Potassium 4.5 (3.4-5.0) mmol/L Chloride 102 (98-107) mmol/L Carbon Dioxide 23 (22-30) mmol/L Anion Gap 13 H (4-12) mmol/L BUN 18 (9-20) mg/dL Creatinine 0.89 (0.7-1.3) mg/dL Estim Creat Clear Calc 101 ml/min Estimated GFR > 60 (59 - ) Glucose 118 H (65-110) mg/dL Calcium 9.8 (8.4-10.2) mg/dL Total Bilirubin 1.2 (0.2-1.3) mg/dL AST 36 (17-59) U/L ALT 45 (6-50) U/L Alkaline Phosphatase 79 (38-126) U/L Total Protein 8.0 (6.3-8.2) g/dL Albumin 4.9 (3.5-5.1) g/dL Urine Color Yellow (Yellow) Urine Appearance Clear (Clear) Urine pH 6.5 (5.0-9.0) Ur Specific [place] 1.033 (1.001-1.035) Urine Protein Trace (Negative) mg/dL Urine Glucose (UA) Trace H (Negative) mg/dL Urine Ketones 3+ H (Negative) mg/dL Ur Blood (Man) Negative (Negative) Urine Nitrate Negative (Negative) Urine Bilirubin Negative (Negative) Urine Urobilinogen 1.0 (<2.0) mg/dL Leukocyte Esterase Rfl Negative (Negative) SHANNAN/UL Urine RBC 0-2 (0-2) /hpf Urine WBC 0-5 (0-3) /hpf Ur Squamous Epith Cells None seen (Few) /hpf Urine Bacteria None seen /hpf Urine Casts 0-2 Discharge Plan Discharge Clinical Impression: Ureterolithiasis Patient Disposition: Home, Self-Care Condition: Stable Instructions: Antibiotic Form, Kidney Stones (ED), Flank Pain (ED) Patient Language: Ukrainian Prescriptions: New hydrocodone-acetaminophen 5-325 mg tablet 1 tablet PO Q6H PRN (Reason: pain) 3 Days Qty: 12 0RF tamsulosin [Flomax] 0.4 mg capsule 0.4 mg PO DAILY Qty: 10 0RF ondansetron 4 mg tablet,disintegrating 4 mg PO Q8H PRN (Reason: nausea and vomiting) Qty: 10 0RF No Action insulin lispro [Humalog U-100 Insulin] 100 unit/mL solution hydrocodone-acetaminophen 5-325 mg tablet 1 tablet PO Q4H PRN (Reason: pain) Qty: 10 0RF ibuprofen [IBU] 600 mg tablet 600 mg PO Q6H PRN (Reason: pain) Qty: 20 0RF ondansetron 4 mg tablet,disintegrating 4 mg PO Q6H PRN (Reason: nausea and vomiting) Qty: 10 0RF tamsulosin [Flomax] 0.4 mg capsule 0.4 mg PO DAILY Qty: 5 0RF ondansetron 4 mg tablet,disintegrating 4 mg PO Q8H PRN (Reason: nausea and vomiting) Qty: 14 0RF Follow-up/Referrals: Pipe,NORBERTO Cotton [Primary Care Provider] - Jamar Maxwell MD [Physician] - Time of Disposition: 17:57
[2024-07-11 15:50] VITALS: BP 138/74; PULSE 55; RESP 18; O2SAT 100
[2024-07-11] MEDS: KETOROLAC 15 MG/ML VIAL (*BKC) IV PUSH (15:54)
[2024-07-11] MEDS: TAMSULOSIN HCL 0.4 MG CAPSULE PO (16:36)
[2024-07-11 17:33] LABS: Add Urine Microscopic? YES; Appearance Urine Clear (Clear); Bacteria Urine None Seen /hpf; Bilirubin Urine Negative (Negative); Blood Urine Negative (Negative); Color Urine Yellow (Yellow); Glucose Urine UA Trace mg/dL (Negative); Ketones Urine 3+ mg/dL (Negative); Leukocyte Esterase Ur Negative LEU/UL (Negative); Nitrate Urine Negative (Negative); Non Pathogenic Casts 0-2; Protein Urine Trace mg/dL (Negative); RBC Urine 0-2 /hpf (0-2); Specific Grav Ur 1.033 (1.001-1.035); Squamous Epithelial Cell Urine None Seen /hpf (Few); WBC Urine 0-5 /hpf (0-3); pH Urine 6.5 (5.0-9.0)
[2024-07-11] MEDS: HYDROmorphone HCL INJ (*CRX) 1 MG/ML SYR IV PUSH (18:29)
[2024-07-11 18:32] VITALS: BP 130/62; PULSE 78; RESP 18; O2SAT 100
== END 2024-07-11 18:56 | disposition home or self-care (01) ==
PROVIDERS: Emergency Medicine; Emergency Provider Emergency Medicine; PCP Nurse Practitioner Family
DX: N20.1 Calculus of ureter (principal); E11.9 Type 2 diabetes mellitus without complications; Z79.4 Long term (current) use of insulin
CPT/HCPCS: 36415; 74176; 80053; 81001; 85025; 96361; 96374; 96375; 99284; A9270; J1171; J1885; J2270; J2405; J7030

== ENCOUNTER 2024-07-17 12:01 | Outpatient (CLI) | payer BC, SELFPAY | END 2024-07-17 12:02 | disposition home or self-care (01) | PROVIDERS: PCP Nurse Practitioner Family; Visit Provider Nurse Practitioner Family | DX: Z87.442 Personal history of urinary calculi (principal) | CPT/HCPCS: 74018 ==